=== PATIENT | female | born 1980 | race Caucasian/White ===

== ENCOUNTER 2018-08-28 21:06 | Emergency (ER) | payer OTHER ==
[~2018-08-28] VITALS: Ht 177.8 cm; Wt 68.0 kg
[2018-08-28 21:13] VITALS: BP 146/67
== END 2018-08-28 21:54 | disposition home or self-care (01) ==
LOC: ER 21:06
DX: S60.032A Contusion of left middle finger without damage to nail, initial encounter (principal); R20.2 Paresthesia of skin; E03.9 Hypothyroidism, unspecified; W57.XXXA Bitten or stung by nonvenomous insect and other nonvenomous arthropods, initial encounter; Y92.89 Other specified places as the place of occurrence of the external cause; Y93.89 Activity, other specified; Y99.8 Other external cause status

== ENCOUNTER 2021-10-13 16:42 | Emergency (ER) | payer OTHER ==
[~2021-10-13] VITALS: Ht 177.8 cm; Wt 70.3 kg
[2021-10-13 17:51] LABS: ABSOLUTE NEUTROPHILS 11.4 thou/uL (1.4-8.2); BASOPHILS 0.6 % (0.0-2.0); EOSINOPHILS 0.2 % (0.0-3.0); HEMOGLOBIN 15.1 gm/dL (12.0-15.0); LYMPHOCYTES 0.8 % (24.0-44.0); MCH 29.5 pg (26.0-34.0); MCV 89.6 fL (80.0-100.0); MONOCYTES 3.9 % (1.0-8.0); PLATELET COUNT 275 thou/uL (150-400); POLYS 94.5 % (36.0-66.0); RBC 5.13 mil/uL (4.20-5.00); RDW 14.4 % (10.5-14.5)
[2021-10-13 17:59] LABS: URINE BLOOD NEGATIVE (Negative); URINE COLOR YELLOW; URINE GLUCOSE-RANDOM* NEGATIVE (Negative); URINE KETONES 1+ (Negative); URINE LEUKOCYTES-REFLEX NEGATIVE (Negative); URINE NITRITE-REFLEX NEGATIVE (Negative); URINE PROTEIN (DIPSTICK) 1+ (Negative); URINE SPECIFIC GRAVITY >= 1.030 (1.005-1.035); URINE UROBILINOGEN 0.2 E.U./dl (0.2-1.0)
[2021-10-13 18:01] LABS: ICTOTEST (BILI CONFIRMATORY) Negative (Negative); URINE BILIRUBIN NEGATIVE (Negative)
[2021-10-13 18:02] LABS: CALCIUM 9.7 mg/dL (8.5-10.1); CREATININE 1.1 mg/dL (0.6-1.0); POTASSIUM 5.3 mmol/L (3.5-5.1)
[2021-10-13 18:02] LABS: URINE CLARITY SL HAZY
[2021-10-13 18:03] LABS: CASTS None Seen /LPF (None Seen); SQUAMOUS 0-3 Few /LPF (0-3); URINE RBC None Seen /HPF (NONE SEEN); URINE WBC-REFLEX 0-5 Rare /HPF (0-5)
[2021-10-13 18:05] LABS: CRYSTALS None Seen /LPF (None Seen)
[2021-10-13 18:08] LABS: ALBUMIN 4.5 g/dL (3.4-5.0); TOTAL BILIRUBIN 0.7 mg/dL (0.2-1.0); TOTAL PROTEIN 7.8 g/dL (6.4-8.2)
[2021-10-13] MEDS ORDERED: SYNTHROID125 MC1 PO (18:36)
[2021-10-13] MEDS ORDERED: ZOFRAN ODT4 MG PO (19:56)
[2021-10-13] MEDS ORDERED: CEPHALEXIN500 MG PO (19:57)
[2021-10-13 20:12] VITALS: BP 110/53
--- NOTE | 2021-10-15 07:16 | EKG ---
[address] [address] ELECTROCARDIOGRAM REPORT Name: SANDI BARAHONA [facility] [id number] Admission: 10/13/21 Attend Phys: Discharge: 10/13/21 Date of : 82 Report #: [id number] [facility] ED Test Date: 2021-10-13 Test Time: 17:27:34 Pat Name: SANDI BARAHONA Department: Room: Gender: F Transit Operator: MELY PATEL : 1980 Requested By: Dimitrios Oconnor Order Number: [id number] : Blaine Braga Measurements Intervals [place] Rate: 90 P: 54 SD: 151 QRS: 73 QRSD: 74 T: 45 QT: 344 QTc: 421 Interpretive Statements Sinus rhythm No previous ECG available for comparison Electronically Signed On 10-15-2021 7:15:49 TRAINING COORDINATOR by Blaine Braga [email or web address] <ELECTRONICALLY SIGNED> By: Blaine Braga MD, [facility] 10/15/21 0715 1727 1727 Blaine Braga MD, FACC /EPI
== END 2021-10-13 20:15 | disposition home or self-care (01) ==
LOC: ER 16:42
PROVIDERS: Physician Assistant
DX: N39.0 Urinary tract infection, site not specified (principal); Z20.822 Contact with and (suspected) exposure to COVID-19; R55 Syncope and collapse; E86.0 Dehydration; R11.2 Nausea with vomiting, unspecified; E03.9 Hypothyroidism, unspecified; Z79.899 Other long term (current) drug therapy